=== PATIENT | male | born 1955 | race Caucasian/White ===

== ENCOUNTER 2019-01-12 08:37 | Emergency (ER) | payer BC, MEDICAID ==
[~2019-01-12] VITALS: Ht 177.8 cm; Wt 81.8 kg
[2019-01-12] MEDS ORDERED: IBUP-2070 PO (08:51)
[2019-01-12] MEDS ORDERED: GABA-531 PO (08:51)
[2019-01-12] MEDS ORDERED: METF-960 PO (08:51)
[2019-01-12 08:58] LABS: GLUCOSE,POINT OF CARE 103 MG/DL (70-110)
[2019-01-12] MEDS ORDERED: LIDOCAINE 5% TRANSDERMAL PATCH TD ONE ×2 (10:15→11:15)
[2019-01-12] MEDS ORDERED: ACETAMINOPHEN 325 MG TABLET PO ONE (11:15)
[2019-01-12 12:32] VITALS: BP 124/77
== END 2019-01-12 12:32 | disposition home or self-care (01) ==
LOC: EMS 08:40
DX: M54.5 Low back pain (principal); M79.662 Pain in left lower leg; E11.9 Type 2 diabetes mellitus without complications; E78.00 Pure hypercholesterolemia, unspecified; I10 Essential (primary) hypertension; F32.9 Major depressive disorder, single episode, unspecified; Z79.899 Other long term (current) drug therapy; Z88.1 Allergy status to other antibiotic agents